=== PATIENT | male | born 1995 ===

== ENCOUNTER 2022-07-28 10:40 | Emergency (ER) | payer OTHER, SELFPAY ==
[2022-07-28 11:09] VITALS: BP 108/57; PULSE 68; RESP 14; TEMP 36.6; O2SAT 97; BMI 25.9
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
--- NOTE | 2022-07-28 12:02 | PC.NURSE ---
PT WAS EVALUATED AND DISCAHRGED BY PROVIDER
== END 2022-07-28 12:02 | disposition home or self-care (01) ==
PROVIDERS: Emergency Provider Emergency Medicine
DX: S16.1XXA Strain of muscle, fascia and tendon at neck level, initial encounter (principal); S39.012A Strain of muscle, fascia and tendon of lower back, initial encounter; V43.62XA Car passenger injured in collision with other type car in traffic accident, initial encounter; Y93.89 Activity, other specified; Y92.410 Unspecified street and highway as the place of occurrence of the external cause; Y99.9 Unspecified external cause status
CPT/HCPCS: 99281; 99283